=== PATIENT | female | born 2000 | race African-American/Black ===

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

== ENCOUNTER 2020-05-05 00:26 | Inpatient (IN) | payer BC ==
[2020-05-05] VITALS (7 sets, daily range): BP systolic 107–122; BP diastolic 58–70
[~2020-05-05] VITALS: Ht 167.6 cm; Wt 64.0 kg
--- NOTE | ~2020-05-05 | O ---
[facility] [place] [address] OPERATIVE REPORT Name: SHAYLA LUA Room #: 445-P ADM IN M.R.#: [id number] Admission: 05/05/20 Attend Phys: Ronnie Valencia MD Discharge: Date of : 89 Report #: [id number] THIS REPORT FOR: cc: DEBBIE - No family physician/PCP DEBBIE - No family physician/PCP Ryan Clement MD ~ CC: Ronnie LEWIS physician/PCP DATE OF SERVICE: 05/05/2020 PREOPERATIVE DIAGNOSIS: Right perirectal abscess. POSTOPERATIVE DIAGNOSIS: Right perirectal abscess. OPERATION: Incision and drainage of ischiorectal abscess. SURGEON: Ryan Clement MD ANESTHESIA: General. ESTIMATED BLOOD LOSS: Minimal. SPECIMEN: None. DESCRIPTION OF PROCEDURE: After informed consent was obtained, the patient was brought to the operating room and placed supine. SCDs were placed and working and general anesthesia was induced. The patient was placed in the lithotomy position. The area was prepped and draped in the usual sterile fashion. This was an abscess on the right side in the anterior quadrant approximately 1 cm from the anal verge. There was draining pus. This was incised with the cautery. Loculations were broken up bluntly. The pus was drained. It was irrigated copiously with normal saline and packed with sterile gauze. Sterile dressings were applied. COMPLICATIONS: None. DISPOSITION: The patient was taken to recovery in satisfactory condition. By: [id number] Ryan Clement MD /nish
[~2020-05-05 00:26] MED LIST changes: +DIFLUCAN150 MG PO
[2020-05-05 03:21] LABS: ABSOLUTE NEUTROPHILS 8.6 thou/uL (1.4-8.2); BASOPHILS 0.2 % (0.0-2.0); EOSINOPHILS 0.2 % (0.0-3.0); HEMATOCRIT 35.5 % (37.0-47.0); HEMOGLOBIN 11.6 gm/dL (12.0-15.0); LYMPHOCYTES 15.3 % (24.0-44.0); MCH 26.3 pg (26.0-34.0); MCHC 32.7 g/dL (28.0-37.0); MCV 80.5 fL (80.0-100.0); MONOCYTES 7.2 % (1.0-8.0); PLATELET COUNT 266 thou/uL (150-400); POLYS 77.1 % (36.0-66.0); RBC 4.41 mil/uL (4.20-5.00); WBC 11.2 thou/uL (4.0-11.0)
[2020-05-05 03:28] LABS: CALCIUM 8.8 mg/dL (8.5-10.1); CREATININE 0.9 mg/dL (0.6-1.0); POTASSIUM 3.5 mmol/L (3.5-5.1)
--- NOTE | 2020-05-05 06:14 | NUR ---
ATTEMPTED TO CALL REPORT TO 4S, NURSE WAS "IN A ROOM DOING SOMETHING, ILL HAVE HER CALL YOU BACK."
--- NOTE | 2020-05-05 09:40 | NUR ---
PT IS AOX4, VSS, REPORTS PAIN IN PERINEUM PAIN ON RIGHT SIDE. NURSE GAVE IV PAIN ANALGESIC ORDERED. PT IS UP AD KJ IN ROOM. CALLS APPROPRIATELY FOR ASSISTANCE. IV IS PATENT IN LEFT AC WITH FLUIDS RUNNING. CALL LIGHT IN REACH, WILL CONTINUE TO MONITOR.
--- NOTE | 2020-05-05 15:29 | NUR ---
CM REVIEWED CHART. PT IS FULLING INDEPENDENT PRIOR TO ADMISSION AND SHOULD HAVE NO NEEDS FROM CM PRIOR TO DISCHARGE.
--- NOTE | 2020-05-06 04:33 | NUR ---
ASSUMED PT CARE AT 1900.PT DENIED PAIN SO FAR.PT UP WITH SBA TO THE TOILET.DRSG TO HER ADAM RECTAL AREA SATURATED,REINFORCED WITH GAUZE.PT TOLERATED HER DINNER.PT LOOKING FORWARD TO BE DC'D LATER IN THE DAY.CALL LIGHTY WITHIN REACH.
[2020-05-06 05:20] VITALS: BP 108/66
[2020-05-06 05:31] LABS: HEMATOCRIT 33.9 % (37.0-47.0); HEMOGLOBIN 11.2 gm/dL (12.0-15.0); MCH 26.7 pg (26.0-34.0); MCHC 33.1 g/dL (28.0-37.0); MCV 80.8 fL (80.0-100.0); RBC 4.2 mil/uL (4.20-5.00); WBC 13.3 thou/uL (4.0-11.0)
[2020-05-06 05:59] LABS: ALBUMIN 3.1 g/dL (3.4-5.0); CALCIUM 8.8 mg/dL (8.5-10.1); CREATININE 0.9 mg/dL (0.6-1.0); PHOSPHORUS 3.2 mg/dL (2.5-4.9); POTASSIUM 3.8 mmol/L (3.5-5.1)
[2020-05-06 09:00] VITALS: BP 108/66
--- NOTE | 2020-05-06 10:08 | NUR ---
Assumed care of pt. at 0700. Pt. was calm and cooperative. Noticed order for Blood transfusion placed yesterday by Dr. Clement, but not initiated. Dr. Clement not aware of order, requested to DC order. Also gave orders to remove packing from surgical wound and give pt. a sitz bath.
[2020-05-06] MEDS ORDERED: NORCO 10-325 T1 EACH PO (12:21)
--- NOTE | 2020-05-06 15:49 | NUR ---
Assumed care of pt. at 0700. Pt. was calm and cooperative. Dr. Clement came by and visited with pt. ordered pt.to take a shower and wet the packed material in her surgical wound, and then for the pt. to self removed it. also ordered removal of IV. Pt. showered and attempted to remove packing but expressed extreme pain when trying to do so. Pt. with help of other nurse Kat HUNT were able to remove packing. Pt. approved for discharge. Pt. given discharge information and perscriptions. Pt. left unit with all belongings.
== END 2020-05-06 14:21 | disposition home or self-care (01) | DRG 346 ==
LOC: ER 00:26 → EROBS 05:23 → 4S 05:23
PROVIDERS: Emergency Medicine; Surgery; ADMIT Surgery; ATTEND Surgery
PROC: 0D9P0ZZ Drainage of Rectum, Open Approach (ICD-10-PCS; principal; 2020-05-05)
DX: K61.1 Rectal abscess (principal); Z20.828 Contact with and (suspected) exposure to other viral communicable diseases; Z79.899 Other long term (current) drug therapy
CPT/HCPCS: 10195; 50010; 50101; 50386; 57091; 62110; 62900; 70005

== ENCOUNTER 2020-07-22 17:50 | Emergency (ER) | payer BC ==
[~2020-07-22] VITALS: Ht 167.6 cm; Wt 63.5 kg
[~2020-07-22 17:50] MED LIST changes: +NORCO 10-325 T1 EACH PO
[2020-07-22 18:09] LABS: URINE BILIRUBIN NEGATIVE (Negative); URINE BLOOD NEGATIVE (Negative); URINE CLARITY CLEAR; URINE COLOR YELLOW; URINE GLUCOSE-RANDOM* NEGATIVE (Negative); URINE KETONES TRACE (Negative); URINE NITRITE-REFLEX NEGATIVE (Negative); URINE PROTEIN (DIPSTICK) NEGATIVE (Negative); URINE UROBILINOGEN 0.2 E.U./dl (0.2-1.0)
[2020-07-22 18:10] LABS: URINE LEUKOCYTES-REFLEX 1+ (Negative)
[2020-07-22 18:28] LABS: CASTS None Seen /LPF (None Seen); SQUAMOUS >10 Many /LPF (0-3)
[2020-07-22 18:29] LABS: AMORPHOUS URATES Few /LPF (None Seen); BACTERIA-REFLEX 1-9 Few /HPF (None Seen); URINE RBC 0-2 Rare /HPF (0-2); URINE WBC-REFLEX 6-15 Few /HPF (0-5)
[2020-07-22] MEDS ORDERED: MACROBID 100 M100 M1 PO (19:04)
[2020-07-22] MEDS ORDERED: ZOFRAN ODT4 MG PO (19:04)
[2020-07-22 21:21] VITALS: BP 00/00
== END 2020-07-22 19:25 | disposition home or self-care (01) ==
LOC: ER 17:50
PROVIDERS: Physician Assistant
DX: N39.0 Urinary tract infection, site not specified (principal); R11.0 Nausea